=== PATIENT | female | born 1990 | race Caucasian/White ===

== ENCOUNTER 2017-09-12 20:29 | Emergency (ER) | payer MEDICAID ==
[2017-09-12] MEDS ORDERED: NS 1,000 ML IV ONE (21:01)
--- NOTE | 2017-09-12 21:05 | EDPHY ---
H & P Time Seen by Provider: 09/12/17 20:49 HPI/ROS: CHIEF COMPLAINT: Syncope HISTORY OF PRESENT ILLNESS: The patient is a 27-year-old female who presents to the emergency department reporting 4 syncopal episodes in a row. Patient was taking out the trash when she had her 1st syncopal episode. She states the walk would normally take "30 sec but turned into 15 min." She is sure she struck her head. She has a mild headache. She denies any focal weakness or numbness. No neck pain. No Chest pain or shortness of breath. No abdominal pain. Patient states she has had a previous syncopal episode. She was told that she had sinus arrhythmia. Patient denies recent vaginal bleeding or anemia. REVIEW OF SYSTEMS: My complete review of systems is negative except as mentioned in the HPI. Past Medical/Surgical History: Includes previous syncopal episode, "GI issues", Giardia. IUD in place Social history: The patient smokes. She denies drug use. She drinks alcohol but none today. Smoking Status: Current every day smoker Physical Exam: 36.9, 139/81, 102, 18, 99% on room air GENERAL: Well-appearing, in no acute distress, alert. HEENT: Eyes normal to inspection, normal pharynx, no signs of dehydration. No signs of head trauma. NECK: No thyromegaly, no lymphadenopathy, supple. RESPIRATORY: Clear to auscultation bilaterally, no rales, rhonchi or wheezing. CVS: Regular rate and rhythm, no rubs, murmurs, or gallops. ABDOMEN: Soft, nontender, nondistended, no organomegaly. BACK: Normal to inspection, no CVA tenderness. SKIN: Normal color, no rash, warm, dry. No pallor. EXTREMITIES: No pedal edema, no calf tenderness, no Homans sign or cords, no joint swelling. NEURO/PSYCH: Higher functions: Alert and Oriented x3. Normal speech and cognition. Normal mood and affect. Cranial nerves: Normal as tested. Cerebellar: Normal as tested. Good finger to nose, good [id number], normal gait. Peripheral exam: Normal motor exam. Normal sensation. Normal reflexes. Constitutional: Initial Vital Signs Temperature (C) 36.9 C 09/12/17 20:32 Heart Rate 102 H 09/12/17 20:32 Respiratory Rate 18 09/12/17 20:32 Blood Pressure 139/81 H 09/12/17 20:32 O2 Sat (%) 99 09/12/17 20:32 O2 Delivery Mode Room Air Allergies/Adverse Reactions: No Known Allergies Allergy (Unverified 09/12/17 20:35) Home Medications: Medication Instructions Recorded NK [No Known Home Meds] 09/12/17 Medical Decision Making ED Course/Re-evaluation: In the emergency department I discussed possible etiologies with the patient. I answered all her questions. IV was placed. Patient was given normal saline 1 L IV for hydration. Laboratory studies were obtained. EKG and head CT were ordered. EKG shows normal sinus rhythm, normal rate, normal axis, normal intervals. There are no ST or T-wave abnormalities. EKG is normal as interpreted by me. Patient has elevated white 14,000. Hematocrit is 47. Chemistry panel is normal. is negative. Head CT: Please refer the dictated report by Dr. Harrison Boyd. No acute disease noted. I discussed the results with the patient. I answered all her questions. On recheck she had no focal neurologic deficits. She was not feeling lightheaded and dizzy. She was given warnings prior to leaving. She will follow up with Cardiology, Neurology and primary care. Differential Diagnosis: My differential includes but is not limited to syncope, dysrhythmia, dehydration , Susan, , ectopic , subarachnoid hemorrhage, subdural hematoma , epidural hematoma CVA - Data Points Laboratory Results: Laboratory Results 09/12/17 21:01 09/12/17 21:01 09/12/17 09/12/17 09/12/17 21:01 21:01 21:01 WBC 14.30 10^3/uL H 10^3/uL (3.80-9.50) RBC 5.11 10^6/uL 10^6/uL (4.18-5.33) Hgb 16.7 g/dL H g/dL (12.6-16.3) Hct 47.2 % H % (38.0-47.0) MCV 92.4 fL fL (81.5-99.8) MCH 32.7 pg pg (27.9-34.1) MCHC 35.4 g/dL g/dL (32.4-36.7) RDW 11.7 % % (11.5-15.2) Plt Count 278 10^3/uL 10^3/uL (150-400) MPV 9.8 fL fL (8.7-11.7) Neut % (Auto) 69.7 % % (39.3-74.2) Lymph % (Auto) 22.1 % % (15.0-45.0) Har[place]on % (Auto) 6.6 % % (4.5-13.0) Eos % (Auto) 0.8 % % (0.6-7.6) Baso % (Auto) 0.5 % % (0.3-1.7) Nucleat RBC Rel Count 0.0 % % (0.0-0.2) Absolute Neuts (auto) 9.95 10^3/uL H 10^3/uL (1.70-6.50) Absolute Lymphs (auto) 3.16 10^3/uL H 10^3/uL (1.00-3.00) Absolute Monos (auto) 0.95 10^3/uL H 10^3/uL (0.30-0.80) Absolute Eos (auto) 0.12 10^3/uL 10^3/uL (0.03-0.40) Absolute Basos (auto) 0.07 10^3/uL 10^3/uL (0.02-0.10) Absolute Nucleated RBC 0.00 10^3/uL 10^3/uL (0-0.01) Immature Gran % 0.3 % % (0.0-1.1) Immature Gran # 0.05 10^3/uL 10^3/uL (0.00-0.10) Sodium 141 mEq/L mEq/L (134-144) Potassium 4.0 mEq/L mEq/L (3.5-5.2) Chloride 102 mEq/L mEq/L (97-110) Carbon Dioxide 24 mEq/l mEq/l (22-31) Anion Gap 15 mEq/L mEq/L (8-16) BUN 16 mg/dL mg/dL (7-23) Creatinine 0.9 mg/dL mg/dL (0.6-1.0) Estimated GFR > 60 Glucose 91 mg/dL mg/dL (70-100) Calcium 9.8 mg/dL mg/dL (8.5-10.4) Beta HCG, Qual NEGATIVE Medications Given: Discontinued Medications Sodium Chloride (Ns) 1,000 mls @ 0 mls/hr IV EDNOW ONE; Wide Open PRN Reason: Protocol Stop: 09/12/17 21:02 Last Admin: 09/12/17 21:02 Dose: 1,000 mls Departure - Departure Disposition: Home, Routine, Self-Care Clinical Impression: Syncope Qualifiers: Syncope type: unspecified Qualified Code(s): R55 - Syncope and collapse Condition: Good Instructions: Syncope (ED) Additional Instructions: If you began to feel lightheaded or dizzy you need to sit down to avoid injury from fall. Follow-up with Dr. Ron. He is on-call for primary care. I also given follow-up information with Neurology (Dr. Monaco), cardiology ( Dr. Negro), and primary care. Call to make the next available appointment. Return with worsening symptoms or any other concerns. Referrals: Moo Ron MD [[facility] [place]] - 2-3 days, call for appt. Paulie Negro MD [Medical Doctor] - 5-7 days, call for appt. Dallas Monaco MD [Medical Doctor] - 5-7 days, call for appt.
[2017-09-12 21:12] LABS: PLATELET COUNT 278 10^3/uL (150-400)
--- NOTE | 2017-09-12 21:13 | CPEKG ---
Heart Rate: 79 RR Interval: 759 P-R Interval: 156 QRSD Interval: 80 QT Interval: 368 QTC Interval: 422 P Madison: 41 QRS Madison: 59 T Wave Madison: 24 EKG Severity - NORMAL ECG - EKG Impression: SINUS RHYTHM Electronically Signed By: Radha García 12-Sep-2017 22:16:57
[2017-09-12 22:18] VITALS: BP 103/67; PULSE 88; RESP 16; TEMP 98.1; O2SAT 97
== END 2017-09-12 22:15 | disposition home or self-care (01) ==
DX: R55 Syncope and collapse (principal); F17.200 Nicotine dependence, unspecified, uncomplicated; E86.9 Volume depletion, unspecified